=== PATIENT | female | born 1955 | race Caucasian/White ===

== ENCOUNTER 2025-06-06 11:20 | Emergency (ER) | payer BC, MEDICARE ==
[~2025-06-06] VITALS: Ht 162.6 cm; Wt 53.5 kg
[2025-06-06] MEDS ORDERED: oxyCODONE/APAP (5/325 MG) 1 UDTAB TABLET ONE (12:06)
[2025-06-06] MEDS: oxyCODONE/APAP (5/325 MG) 1 UDTAB TABLET PO ONE (12:09)
[2025-06-06] MEDS ORDERED: LIDO30AD10 TP (13:56)
[2025-06-06] MEDS ORDERED: OXYC-128 PO (13:56)
[2025-06-06] MEDS ORDERED: LIDOCAINE 5% (PATCH) 1 EA PATCH TP ONE (13:57)
[2025-06-06] MEDS ORDERED: ACET-2030 PO (13:57)
[2025-06-06] MEDS: LIDOCAINE 5% (PATCH) 1 EA PATCH TP SCH (14:00)
[2025-06-06 14:14] VITALS: BP 133/83; TEMP 97.9; O2SAT 96
== END 2025-06-06 14:14 | disposition home or self-care (01) ==
LOC: ER 11:20
DX: S80.02XA Contusion of left knee, initial encounter (principal); I11.0 Hypertensive heart disease with heart failure; E78.5 Hyperlipidemia, unspecified; G62.9 Polyneuropathy, unspecified; Z85.3 Personal history of malignant neoplasm of breast; J43.9 Emphysema, unspecified; W18.39XA Other fall on same level, initial encounter; Y93.89 Activity, other specified; Y92.89 Other specified places as the place of occurrence of the external cause; Y99.9 Unspecified external cause status
CPT/HCPCS: 73564-TC